=== PATIENT | female | born 1965 | race Caucasian/White ===

== ENCOUNTER → 2016-04-29 | Outpatient (CLI) | payer BC ==
[~2016-04-29] MED LIST: HYDR1TAB PO; LORA0.5T34 GT
--- NOTE | 2016-04-30 08:59 | ECHOCARDIOGRAPHY REPORT ---
PROCEDURE PHYSICIAN: GLEN KERR DATE OF PROCEDURE: 04/29/2016 TWO DIMENSIONAL ECHOCARDIOGRAM REPORT PRIMARY PHYSICIAN: OTHER PHYSICIAN: REFERRING PHYSICIAN: Dr. Farias and Padmaja Le APRN ORDERING PHYSICIAN: INDICATION FOR THE PROCEDURE: 1. Dizziness. 2. Peripheral edema. MEASUREMENTS DERIVED VALUES LV DIAMETER (LAX) NORMALS NORMALS Diastolic 3.9 (3.6-5.2) Eject. Fract. 60% (60%+/-6%) Systolic (2.3-3.9) Diastolic Vol. % Shortening (0.22-0.42) Systolic Vol. Aortic Root IVS THICKNESS Diastolic 0.9 (0.6-1.1) LVPW THICKNESS Diastolic 0.9 (0.6-1.1) LA DIAMETER Systolic 2.4 (2.1-3.7) FINDINGS: 1. Technically suboptimal study. 2. The left ventricle is normal in size with normal contractility. Systolic function appeared to be normal. Estimated ejection fraction 60%. Diastolic dysfunction is suggested by Doppler. 3. The left atrium is normal in size. No clot or thrombus were seen within the left atrium. 4. The right atrium and right ventricle are normal in size. No clot or thrombus were seen within the right side. 5. Mitral valve is normal in morphology with mild mitral regurgitation noted by color Doppler flow. No mitral valve prolapse. No mitral valve stenosis. 6. Aortic valve is trileaflet with normal opening and closing pattern. No significant aortic stenosis or regurgitation was seen. 7. Tricuspid valve is normal in morphology with mild tricuspid regurgitation noted by color Doppler flow. Doppler across tricuspid valve estimated pulmonary artery pressure of 26+ right atrial pressure. 8. Pulmonic valve is functioning normally. 9. No pericardial effusion. IN CONCLUSION: 1. Normal left ventricular size and systolic function. Estimated ejection fraction 60%. Diastolic dysfunction is suggested by Doppler. 2. Mild mitral and tricuspid regurgitation. 3. Estimated pulmonary artery pressure of 35 mmHg. Job ID: [id number] Dictated Date: 04/29/2016 17:36:02 Label Machine Operator Date: 04/30/2016 08:56:13 / martha
== END ==
LOC: CARD 12:37
PROVIDERS: ATTEND Nurse Practitioner Family
DX: R42 Dizziness and giddiness (principal); R60.0 Localized edema; R00.2 Palpitations
CPT/HCPCS: 93017; 93306

== ENCOUNTER → 2016-12-17 | Outpatient (CLI) | payer BC | LOC: PREOP 05:28 | PROVIDERS: ATTEND Surgery | DX: Z01.818 Encounter for other preprocedural examination (principal); Z12.11 Encounter for screening for malignant neoplasm of colon ==

== ENCOUNTER 2016-12-21 07:45 | Day surgery (SDC) | payer BC ==
[~2016-12-21] VITALS: Ht 172.7 cm; Wt 79.4 kg
[2016-12-21 08:00] VITALS: BP 114/88
[2016-12-21] MEDS ORDERED: NS IV 500 ML 500 ML IV PRN (08:01)
[2016-12-21] MEDS ORDERED: NS IV 500 ML 500 ML ONE (08:09)
--- NOTE | 2016-12-21 08:35 | History & Physicial ---
History of Present Illness History of Present Illness Reason for visit/HPI to undergo screening colonoscopy Date of Admission Date Seen by Provider: Dec 21, 2016 Time Seen by Provider: 08:33 I consulted on this patient on 12/21/16 08:33 Attending Physician Alpa Weinstein MD Admitting Physician Kavita Farias MD Consult Allergies and Home Medications Allergies Coded Allergies: No Known Drug Allergies (Unverified , 09/16/12) Home Medications Hydrocodone Bit/Acetaminophen 1 Each Tablet, 1-2 EACH PO Q4HR PRN, (Reported) Lorazepam 0.5 Mg Tablet, 0.5 MG GT PRN, (Reported) Past Wmpguxr-Wdznmw-Juwbdj Hx Patient Social History Employed/Student: employed Alcohol Use: Occasionally Uses Alcohol Beverage of Choice: Wine Recreational Drug Use: No Smoking Status: Never a Smoker Recent Foreign Travel: No Contact w/other who traveled: No Recent Hopitalizations: No Recent Infectious Disease Expo: No Seasonal Allergies Seasonal Allergies: Yes Surgeries Yes Pituitary Respiratory No Cardiovascular No Neurological No Reproductive System Hx Reproductive Disorders: No Genitourinary No Gastrointestinal No Musculoskeletal No Endocrine History of Endocrine Disorders: Yes Endocrine Disorders: Pituitary Disease HEENT History of HEENT Disorders: No Cancer No Psychosocial History of Psychiatric Problem: No Integumentary History of Skin or Integumenta: No Family Medical History Significant Family History: No Pertinent Family Hx Constitutional: no symptoms reported EENTM: no symptoms reported Respiratory: no symptoms reported Cardiovascular: no symptoms reported Gastrointestinal: no symptoms reported Genitourinary: no symptoms reported Musculoskeletal: no symptoms reported Skin: no symptoms reported Psychiatric/Neurological: No Symptoms Reported Physical Exam Vital Signs Vital Sign - Last 12Hours 12/21/16 08:00 Temp 98.6 Pulse 93 Resp 18 B/P (MAP) 114/88 Pulse Ox 96 O2 Delivery Room Air Capillary Refill : General Appearance: No Apparent Distress HEENT: Normal ENT Inspection Neck: Normal Inspection Respiratory: Lungs Clear Cardiovascular: Regular Rate, Rhythm Gastrointestinal: Non Tender, Soft Rectal: Deferred Back: Normal Inspection Extremity: Normal Inspection Neurologic/Psychiatric: Oriented x3 Skin: Warm/Dry Assessment/Plan Assessment and Plan lady here to undergo screening colonoscopy. Discussed in detail. Problems: ALPA WEINSTEIN MD Dec 21, 2016 8:35 am
--- NOTE | 2016-12-21 08:36 | Conscious Sedation/ASA ---
Conscious Sedation Pre-Proced Time Reviewed: 08:36 ASA Class: 2 Airway Mallampati Classification: ([place] appropriate class) I. II. III, IV Lungs Heart ASA score ASA 1: a normal healthy patient ASA 2: a patient with a mild systemic disease (mid diabetes, controlled hypertension, obesity ASA 3: a patient with a severe systemic disease that limits activity (angina , COPD, prior Myocardial infarction) ASA 4: a patient with an incapacitating disease that is a constant threat to life (CHF, renal failure) ASA 5: a moribund patient not expected to survive 24 hrs. (ruptured aneurysm) ASA 6: a declared brain patient whose organs are being harvested. For emergent operations, add the letter E after the classification Grade 1 Sedation Plan: Discussed options with patient/fam Note The patient is an appropriate candidate to undergo the planned procedure, sedation, and anesthesia. The patient immediately re-assessed prior to indication. ALPA SMITH MD Dec 21, 2016 8:36 am
[2016-12-21] MEDS ORDERED: fentaNYL INJECTION 100 MCG/2 ML AMP ONE (08:59)
[2016-12-21] MEDS ORDERED: MIDAZOLAM 2 MG/2 ML (VERSED) VIAL ONE ×3 (08:59)
[2016-12-21] MEDS: MIDAZOLAM 2 MG/2 ML (VERSED) VIAL IVP PRN ×3 (09:10→09:16)
[2016-12-21] MEDS: fentaNYL INJECTION 100 MCG/2 ML AMP IVP PRN ×2 (09:11→09:14)
--- NOTE | 2016-12-21 09:27 | Endo Procedure Record ---
Endo Procedure Report Date of Procedure Dec 21, 2016 Surgeon (s) ALPA SMITH MD Post Procedure/Op Diagnosis normal colonoscopy Procedure Performed colonoscopy to cecum Description of Procedure Anesthesia Type: Conscious Sedation Specimen(s) collected/removed none Description of the Procedure Indication for procedure: This lady came in for screening colonoscopy. She denied any relevant family history. Informed consent was obtained after reviewing the procedure in detail. Description of procedure: She was placed in left lateral decubitus position and her vital signs were monitored. Conscious sedation was achieved using Versed and fentanyl. Digital rectal examination was unremarkable. The colonoscope was then introduced into the rectum and advanced all the way up to the cecum the scope was withdrawn slowly and the mucosa examined in a systematic fashion. There was no abnormality She tolerated the procedure well and was taken back to the nursing area in a stable condition. Impression: Normal screening colonoscopy. No family history. Recommend repeating in 10 years Copies To: IZAIAH YANCEY MD, XAVIER M MD Dec 21, 2016 9:27 am
--- NOTE | 2016-12-21 09:28 | Discharge Inst-Simple/Standard ---
Discharge Inst-Standard Discharge Medications New, Converted or Re-Newed RX: Other Patient Instructions/Follow Up Plan of Care/Instructions/FU: repeat colonoscopy in 10 years Activity as Tolerated: Yes Discharge Diet: No Restrictions ALPA SMITH MD Dec 21, 2016 9:28 am
[2016-12-21 09:45] VITALS: BP 114/88
[2016-12-21 10:15] VITALS: BP 118/69
[2016-12-21 10:35] VITALS: BP 118/69
== END 2016-12-21 10:35 | disposition home or self-care (01) ==
LOC: ENDO 07:45
PROVIDERS: ATTEND Surgery
DX: Z12.11 Encounter for screening for malignant neoplasm of colon (principal)
CPT/HCPCS: 84703

== ENCOUNTER → 2017-07-20 | Outpatient (CLI) | payer BC ==
--- NOTE | 2017-07-20 15:31 | Diagnostic Imaging Report ---
INDICATION: Routine screening. COMPARISON: 11/01/2015 and 04/20/2014. TECHNIQUE: Screening digital mammography was performed bilaterally with a Computer Aided Detection (CAD) system. FINDINGS: Scattered fibroglandular densities are identified bilaterally. There are benign calcifications on the right. No mass or malignant appearing microcalcifications are seen. The axillae are unremarkable. IMPRESSION: No mammographic features suspicious for malignancy are identified. ACR BI-RADS Category 2: Benign findings. Result letter will be mailed to the patient. Note: At least 10% of breast cancer is not imaged by mammography. Dictated by: Dictated on workstation # [id number]
== END ==
LOC: RAD 14:11
PROVIDERS: ATTEND Nurse Practitioner Family
DX: Z12.31 Encounter for screening mammogram for malignant neoplasm of breast (principal)
CPT/HCPCS: 77067

== ENCOUNTER 2018-08-19 16:58 | Emergency (ER) | payer OTHER, BC ==
[~2018-08-19] VITALS: Ht 172.7 cm; Wt 79.4 kg
--- OUTSIDE RECORDS SUMMARY | 2018-08-19 17:03 | XMS REPORT | Continuity of Care Document ---
Author Organization Unknown Address Unknown Allergies Active Description Code Type Severity Reaction Onset Reported/Identified Relationship to Patient Clinical Status Yes No Known Drug Allergies [id number] Drug Allergy Unknown N/A 09/16/2012 Medications There is no data. Problems Date Dx Coded Attending Type Code Diagnosis Diagnosed By 09/20/2012 SARAH PEÑA, ALPA Hemphill Ot 706.2 04/19/2014 Ot V76.12 04/19/2014 Ot 620.2 04/19/2014 Ot 626.8 04/19/2014 Ot V76.12 04/19/2014 Ot V76.12 04/19/2014 SARAH PEÑA, ALPA Hemphill Ot 709.9 04/19/2014 SARAH PEÑA, ALPA Hemphill Ot V72.83 04/19/2014 SARAH PEÑA, ALPA Hemphill Ot V74.8 05/10/2014 Ot V76.12 05/10/2014 Ot 620.2 05/10/2014 Ot 626.8 05/10/2014 Ot V76.12 05/10/2014 Ot V76.12 05/10/2014 SARAH PEÑA, ALPA Hemphill Ot 709.9 05/10/2014 SARAH PEÑA, ALPA Hemphill Ot V72.83 05/10/2014 SARAH PEÑA, ALPA Hemphill Ot V74.8 05/10/2014 BRITT CHENG MD Ot V76.12 05/14/2014 SKYLAR PEÑA, BRITT Hemphill Ot V76.12 05/31/2014 SKYLAR PEÑA, BRITT Hemphill Ot 793.80 07/16/2014 Ot V76.12 07/16/2014 Ot 620.2 07/16/2014 Ot 626.8 07/16/2014 Ot V76.12 07/16/2014 Ot V76.12 07/16/2014 SARAH PEÑA, ALPA Hemphill Ot 709.9 07/16/2014 SARAH PEÑA, ALPA Hemphill Ot V72.83 07/16/2014 SARAH PEÑA, ALPA Hemphill Ot V74.8 07/16/2014 SKYLAR PEÑA, BRITT Hemphill Ot V76.12 07/16/2014 SKYLAR PEÑA, BRITT Hemphill Ot 793.80 07/19/2014 SKYLAR PEÑA, BRITT Hemphill Ot 780.4 08/24/2014 SKYLAR PEÑA, BRITT Hemphill Ot 780.4 08/24/2014 SKYLAR PEÑA, BRITT Hemphill Ot 227.3 11/04/2015 TAY HURST TRANSMISSION INSPECTOR Ot Z12.31 ENCNTR SCREEN MAMMOGRAM FOR MALIGNANT NE 11/15/2015 TAY HURST TRANSMISSION INSPECTOR Ot Z12.31 ENCNTR SCREEN MAMMOGRAM FOR MALIGNANT NE 04/29/2016 SKYLAR PEÑA, BRITT Hemphill Ot 780.4 DIZZINESS AND GIDDINESS 04/29/2016 SKYLAR PEÑA, BRITT Hemphill Ot 227.3 BENIGN JENN PITUITARY 04/29/2016 TAY HURST TRANSMISSION INSPECTOR Ot Z12.31 ENCNTR SCREEN MAMMOGRAM FOR MALIGNANT NE 04/30/2016 TAY HURST TRANSMISSION INSPECTOR Ot R00.2 PALPITATIONS 04/30/2016 TAY HURST TRANSMISSION INSPECTOR Ot R42 DIZZINESS AND GIDDINESS 04/30/2016 TAY HURST TRANSMISSION INSPECTOR Ot R60.0 LOCALIZED EDEMA 05/01/2016 TAY HURST TRANSMISSION INSPECTOR Ot R00.2 PALPITATIONS 05/01/2016 TAY HURST TRANSMISSION INSPECTOR Ot R42 DIZZINESS AND GIDDINESS 05/01/2016 TAY HURST TRANSMISSION INSPECTOR Ot R60.0 LOCALIZED EDEMA 05/05/2016 TAY HURST TRANSMISSION INSPECTOR Ot R00.2 PALPITATIONS 05/05/2016 TAY HURST TRANSMISSION INSPECTOR Ot R42 DIZZINESS AND GIDDINESS 05/05/2016 TAY HURST TRANSMISSION INSPECTOR Ot R60.0 LOCALIZED EDEMA 05/07/2016 TAY HURST TRANSMISSION INSPECTOR Ot R00.2 PALPITATIONS 05/07/2016 TAY HURST TRANSMISSION INSPECTOR Ot R42 DIZZINESS AND GIDDINESS 05/07/2016 TAY HURST TRANSMISSION INSPECTOR Ot R60.0 LOCALIZED EDEMA 12/21/2016 SARAH PEÑA, ALPA Hemphill Ot Z12.11 ENCOUNTER FOR SCREENING FOR MALIGNANT NE 12/30/2016 SARAH PEÑA, ALPA Hemphill Ot Z12.11 ENCOUNTER FOR SCREENING FOR MALIGNANT NE 07/16/2017 BRITT CHENG MD Ot 780.4 DIZZINESS AND GIDDINESS 07/16/2017 BRITT CHENG MD Ot 227.3 BENIGN JENN PITUITARY 07/16/2017 TAY HURST TRANSMISSION INSPECTOR Ot Z12.31 ENCNTR SCREEN MAMMOGRAM FOR MALIGNANT NE 07/16/2017 TAY HURST TRANSMISSION INSPECTOR Ot R00.2 PALPITATIONS 07/16/2017 TAY HURST TRANSMISSION INSPECTOR Ot R42 DIZZINESS AND GIDDINESS 07/16/2017 TAY HURST TRANSMISSION INSPECTOR Ot R60.0 LOCALIZED EDEMA 07/16/2017 ALPA SMITH MD Ot Z01.818 ENCOUNTER FOR OTHER PREPROCEDURAL EXAMIN 07/16/2017 ALPA SMITH MD Ot Z12.11 ENCOUNTER FOR SCREENING FOR MALIGNANT NE 07/20/2017 BRITT CHENG MD Ot 780.4 DIZZINESS AND GIDDINESS 07/20/2017 BRITT CHENG MD Ot 227.3 BENIGN JENN PITUITARY 07/20/2017 TAY HURST TRANSMISSION INSPECTOR Ot Z12.31 ENCNTR SCREEN MAMMOGRAM FOR MALIGNANT NE 07/20/2017 TAY HURST TRANSMISSION INSPECTOR Ot R00.2 PALPITATIONS 07/20/2017 TAY HURST TRANSMISSION INSPECTOR Ot R42 DIZZINESS AND GIDDINESS 07/20/2017 TAY HURST TRANSMISSION INSPECTOR Ot R60.0 LOCALIZED EDEMA 07/20/2017 ALPA SMITH MD Ot Z01.818 ENCOUNTER FOR OTHER PREPROCEDURAL EXAMIN 07/20/2017 ALPA SMITH MD Ot Z12.11 ENCOUNTER FOR SCREENING FOR MALIGNANT NE 07/21/2017 TAY HURST TRANSMISSION INSPECTOR Ot Z12.31 ENCNTR SCREEN MAMMOGRAM FOR MALIGNANT NE 07/21/2017 TAY HURST TRANSMISSION INSPECTOR Ot Z12.31 ENCNTR SCREEN MAMMOGRAM FOR MALIGNANT NE 08/04/2017 TAY HURST TRANSMISSION INSPECTOR Ot Z12.31 ENCNTR SCREEN MAMMOGRAM FOR MALIGNANT NE Procedures There is no data. Results Test Result Range Urine beta human chorionic gonadotropin (hCG) measurement - 12/21/16 08:10 Urine beta human chorionic gonadotropin (hCG) measurement NEGATIVE NEGATIVE Encounters ACCT No. Visit Date/Time Discharge Status Pt. Type Provider Facility Loc./Unit Complaint [id number] 07/20/2017 14:11:00 07/20/2017 23:59:59 CLS Outpatient TAY HURST TRANSMISSION INSPECTOR [facility] RAD SCREENING [id number] 12/21/2016 07:45:00 12/21/2016 10:35:00 DIS Outpatient ALPA SMITH MD [facility] ENDO SCREENING [id number] 12/17/2016 05:28:00 12/17/2016 23:59:59 CLS Outpatient ALPA SMITH MD [facility] PREOP SCREENING COLONOSCOPY [id number] 04/29/2016 12:37:00 04/29/2016 23:59:59 CLS Outpatient TAY HURST TRANSMISSION INSPECTOR [facility] CARD DIZZINESS,EDEMA LEFT LEG [id number] 11/01/2015 10:01:00 11/01/2015 23:59:59 CLS Outpatient TAY HURST TRANSMISSION INSPECTOR [facility] RAD SCREENING [id number] 07/17/2014 13:52:00 07/17/2014 23:59:59 CLS Outpatient BRITT CHENG MD [facility] RAD MACROADENOMA PITUITARY [id number] 07/16/2014 08:05:00 07/16/2014 23:59:59 CLS Outpatient BRITT CHENG MD [facility] RAD VERTIGO [id number] 05/09/2014 08:09:00 05/09/2014 23:59:59 CLS Outpatient BRITT CHENG MD [facility] RAD [id number] 04/20/2014 14:56:00 04/20/2014 23:59:59 CLS Outpatient BRITT CHENG MD [facility] RAD [id number] 09/20/2012 06:09:00 09/20/2012 10:05:00 DIS Outpatient ALPA SMITH MD [facility] SDC [id number] 09/16/2012 14:37:00 09/16/2012 23:59:59 CLS Outpatient ALPA SMITH MD [facility] PREOP [id number] 08/19/2018 16:59:00 ACT Emergency IMANI PEÑA, JESSICA Miller [facility] ER R HAND LITTLE FINGER SHUT IN CAR DOOR [id number] 04/22/2012 09:22:00 Document Registration [id number] 02/18/2011 15:06:00 Document Registration [id number] 02/05/2010 07:53:00 Document Registration
--- NOTE | 2018-08-19 17:29 | ED Upper Extremity ---
General Chief Complaint: Upper Extremity Stated Complaint: R HAND LITTLE FINGER SHUT IN CAR DOOR Nursing Triage Note: Pt reports slamming R hand pinkie finger in car door just ACCOUNT SUPPORT MANAGER. Pt reports nail is missing. Bleeding is controlled by pressure and kleenex. Nursing Sepsis Screen: No Definite Risk Source: patient Exam Limitations: no limitations History of Present Illness Date Seen by Provider: August 19, 2018 Time Seen by Provider: 17:29 Allergies and Home Medications Allergies Coded Allergies: No Known Drug Allergies (Unverified , 09/16/12) Home Medications Hydrocodone Bit/Acetaminophen 1 Each Tablet, 1-2 EACH PO Q4HR PRN, (Reported) Lorazepam 0.5 Mg Tablet, 0.5 MG GT PRN, (Reported) Past Rvwucly-Weckyp-Czsfed Hx Patient Social History Alcohol Use: Occasionally Uses Number of Drinks Today: Alcohol Beverage of Choice: Wine Recreational Drug Use: No 2nd Hand Smoke Exposure: No Recent Foreign Travel: No Contact w/Someone Who Travel: No Recent Infectious Disease Expo: No Recent Hopitalizations: No Seasonal Allergies Seasonal Allergies: Yes Past Medical History Surgeries: Yes Pituitary Respiratory: No Asthma Cardiac: No Neurological: No Reproductive Disorders: No Genitourinary: No Gastrointestinal: No Musculoskeletal: No Endocrine: Yes Pituitary Disease HEENT: No Cancer: No Psychosocial: No Integumentary: No Blood Disorders: No Family Medical History No Pertinent Family Hx Physical Exam Vital Signs Vital Signs - First Documented 08/19/18 17:12 Temp 98.4 Pulse 98 Resp 18 B/P (MAP) 144/84 (104) Pulse Ox 96 O2 Delivery Room Air Capillary Refill : Less Than 3 Seconds Height, Weight, BMI Height: 5'8.00" Weight: 175lbs. 0.0oz. 79.564351xi; 26.6 BMI Method:Stated Progress/Results/Core Measures Results/Orders My Orders Orders - BERNOT,ALMA Finger(S) (08/19/18 17:23) Dipht,Pertuss(Acell),Tet Adult (Boostrix (08/19/18 17:30) Medications Given in ED Current Medications Medications Dose Ordered Sig/Jack Route Start Time Stop Time Status Last Admin Dose Admin Diphtheria/ Tetanus/Acell Pertussis 0.5 ml ONCE ONCE IM 08/19/18 17:30 08/19/18 17:31 DC 08/19/18 18:05 0.5 ML Vital Signs/I&O 08/19/18 17:12 Temp 98.4 Pulse 98 Resp 18 B/P (MAP) 144/84 (104) Pulse Ox 96 O2 Delivery Room Air Blood Pressure Mean: 104 Departure Impression Primary Impression: Nail avulsion, finger Additional Impression: Finger fracture Disposition: 01 HOME, SELF-CARE Condition: Stable/Unchanged Departure-Patient Inst. Decision time for Depature: 17:42 Referrals: IZAIAH YANCEY MD (PCP/Family) Primary Care Physician Patient Instructions: Nail Avulsion (DC), Finger Fracture Add. Discharge Instructions: Take medication as directed. Tylenol and Motrin as needed for pain relief. For pain unrelieved by Tylenol Motrin you may use the hydrocodone as prescribed. Change the dressing twice a day. Watch for signs of infection such as increased redness, swelling, drainage, pain. Follow-up with her primary care provider within 1 week for recheck. Return back to the emergency room for worsening symptoms or concerns as needed. All discharge instructions reviewed with patient and/or family. Voiced understanding. Scripts Sulfamethoxazole/Trimethoprim (Bactrim Ds Tablet) 1 Each Tablet 1 EACH PO BID for 7 Days, #14 TAB Prov: ALMA GERBER 08/19/18 Hydrocodone Bit/Acetaminophen (Hydrocodone/Acetaminophen 5/325mg Tablet) 1 Tab Tab 1 EACH PO Q4-6HR PRN for PAIN-MODERATE MDD 10 for 3 Days, #14 TAB Prov: ALMA GERBER 08/19/18 ALMA GERBER August 19, 2018 17:29
[2018-08-19] MEDS ORDERED: TETANUS,DIPTH,PERTUSS P/F (BOOSTRIX) 0.5 ML VIAL IM ONE (17:30)
--- NOTE | 2018-08-19 17:54 | Diagnostic Imaging Report ---
EXAMINATION: Right hand, fifth finger. INDICATION: Fifth finger pain. Shut hand in car door. FINDINGS: There is a nondisplaced fracture demonstrated through the tuft of the distal phalanx of the right fifth digit. No other fracture is evident. There is no joint dislocation. There is no focal soft tissue abnormality. IMPRESSION: Nondisplaced fracture involving the tuft of the distal phalanx of the right fifth finger. Dictated by: Dictated on workstation # [id number]
[2018-08-19] MEDS ORDERED: ACHD5005 PO (18:28)
[2018-08-19] MEDS ORDERED: SULF1TAB35 PO (18:28)
[2018-08-19 18:39] VITALS: BP 144/84
== END 2018-08-19 18:39 | disposition home or self-care (01) ==
LOC: EDUNIT# 16:58 → ER 16:59
DX: S62.666A Nondisplaced fracture of distal phalanx of right little finger, initial encounter for closed fracture (principal); J45.909 Unspecified asthma, uncomplicated; Z23 Encounter for immunization; W23.0XXA Caught, crushed, jammed, or pinched between moving objects, initial encounter
CPT/HCPCS: 29130; 73140; 90715

== ENCOUNTER → 2019-02-01 | Outpatient (CLI) | payer BC ==
[~2019-02-01] MED LIST changes: +ACHD5005 PO; +SULF1TAB35 PO
--- NOTE | 2019-02-02 08:56 | Diagnostic Imaging Report ---
INDICATION: Routine screening. Comparison is made with prior mammogram from 07/20/2017 and 11/01/2015. 2-D and 3-D bilateral screening mammography was performed with CAD. Scattered fibroglandular densities are identified bilaterally. Benign calcifications again noted. Overall parenchymal pattern is stable. No mass or malignant-appearing microcalcifications are seen. Axillae are unremarkable. IMPRESSION: BI-RADS Category 2 No mammographic features suspicious for malignancy are identified. ACR BI-RADS Category 2: Benign findings. Result letter will be mailed to the patient. Note: At least 10% of breast cancer is not imaged by mammography. Dictated by: Dictated on workstation # [id number]
== END ==
LOC: RAD 15:15
PROVIDERS: ATTEND Nurse Practitioner Family
DX: Z12.31 Encounter for screening mammogram for malignant neoplasm of breast (principal)
CPT/HCPCS: 77067

== ENCOUNTER 2019-03-15 11:27 | Outpatient (RCR) | payer BC | END 2019-06-13 | disposition home or self-care (01) | LOC: CARD 11:27 | PROVIDERS: ATTEND Nurse Practitioner Family | DX: R00.2 Palpitations (principal) | CPT/HCPCS: 93225; 93226 ==

== ENCOUNTER → 2020-10-11 | Outpatient (CLI) | payer BC ==
--- NOTE | 2020-10-11 12:31 | Diagnostic Imaging Report ---
INDICATION: Routine screening. Comparison is made with prior mammogram from 02/01/2019 and 07/20/2017. 2-D and 3-D bilateral screening mammography was performed with CAD. Both breasts are heterogeneously dense, limiting the sensitivity of mammography. The parenchymal pattern is stable. No mass or malignant-appearing microcalcifications are seen. There are benign calcifications in the right breast. Axillae are unremarkable. IMPRESSION: BI-RADS Category 2 No mammographic features suspicious for malignancy are identified. ACR BI-RADS Category 2: Benign findings. Result letter will be mailed to the patient. Note: At least 10% of breast cancer is not imaged by mammography. Dictated by: Dictated on workstation # [id number]
== END ==
LOC: RAD 09:15
PROVIDERS: ATTEND Family Medicine
DX: Z12.31 Encounter for screening mammogram for malignant neoplasm of breast (principal)
CPT/HCPCS: 77063; 77067

== ENCOUNTER → 2021-11-21 | Outpatient (CLI) | payer BC ==
[~2021-11-21] MED LIST changes: -SULF1TAB35 PO; +SULF1TAB38 PO
--- NOTE | 2021-11-24 08:46 | Diagnostic Imaging Report ---
INDICATION: Routine screening. COMPARISON: 10/11/2020 and 02/01/2019. TECHNIQUE: 2D and 3D bilateral screening mammography was performed with CAD. FINDINGS: Both breasts are heterogeneously dense, limiting the sensitivity of mammography. The parenchymal pattern is stable. There are scattered benign calcifications. No mass or malignant-appearing microcalcifications are seen. The axillae are unremarkable. IMPRESSION: No mammographic features suspicious for malignancy are identified. ACR BI-RADS Category 2: Benign findings. Result letter will be mailed to the patient. Note: At least 10% of breast cancer is not imaged by mammography. Dictated by: Dictated on workstation # [id number]
== END ==
LOC: RAD 14:39
PROVIDERS: ATTEND Nurse Practitioner Family
DX: Z12.31 Encounter for screening mammogram for malignant neoplasm of breast (principal)
CPT/HCPCS: 77063; 77067

== ENCOUNTER → 2022-12-02 | Outpatient (CLI) | payer BC ==
--- NOTE | 2022-12-02 09:35 | Diagnostic Imaging Report ---
INDICATION: Routine screening. COMPARISON: 11/21/2021 and 10/11/2020. TECHNIQUE: 2D and 3D bilateral screening mammography was performed with CAD. FINDINGS: Both breasts are heterogeneously dense, limiting the sensitivity of mammography. The parenchymal pattern is stable. No mass or malignant-appearing microcalcifications are seen. There are benign calcifications bilaterally. The axillae are unremarkable. IMPRESSION: No mammographic features suspicious for malignancy are identified. ACR BI-RADS Category 2: Benign findings. Result letter will be mailed to the patient. Note: At least 10% of breast cancer is not imaged by mammography. Dictated by: Dictated on workstation # [id number]
== END ==
LOC: RAD 07:41
PROVIDERS: ATTEND Family Medicine
DX: Z12.31 Encounter for screening mammogram for malignant neoplasm of breast (principal)
CPT/HCPCS: 77063; 77067